=== PATIENT | female | born 1980 | race Caucasian/White ===

== ENCOUNTER 2016-07-02 15:24 | Observation (INO) | payer OTHER ==
[2016-07-02 15:24] VITALS: BMI 27.8
[2016-07-02] MEDS ORDERED: Sodium Chloride 0.9% 1,000 ML IV ONE (16:20)
[2016-07-02] MEDS ORDERED: Sodium Chloride 0.9% 1,000 ML ONE (16:50)
[2016-07-02 16:59] LABS: BASO % 0.4 % (0.0-2.0); EOS % 0.1 % (0.0-4.0); HEMATOCRIT 16.5 % (34.0-47.0); LYMPH # 1.5 K/uL (1.0-4.3); LYMPH % 24.7 % (20.0-40.0); MEAN CELL VOLUME 79.8 fL (81.0-99.0); MEAN CORPUSCULAR HEMOGLOBIN 25.8 pg (27.0-31.0); MEAN CORPUSCULAR HGB CONC 32.4 g/dL (33.0-37.0); MEAN PLATELET VOLUME 7.9 fL (7.2-11.7); MONO # 0.3 K/uL (0.0-0.8); MONO % 4.6 % (0.0-10.0); RED CELL DISTRIBUTION WIDTH 19.1 % (11.5-14.5); WHITE BLOOD COUNT 6.1 K/uL (4.8-10.8)
[2016-07-02 17:07] LABS: INR 1.1
[2016-07-02 17:08] LABS: CHLORIDE 102 mmol/L (98-107); POTASSIUM 3.2 mmol/L (3.6-5.2); SODIUM 137 mmol/L (132-148)
[2016-07-02 17:10] LABS: BILIRUBIN,TOTAL 0.3 mg/dL (0.2-1.3); CARBON DIOXIDE 27 mmol/L (22-30); GFR AFRICAN-AMERICAN > 60
[2016-07-02 17:11] LABS: ALB/GLOB RATIO 1.3 (1.0-2.1); ALKALINE PHOSPHATASE 47 U/L (38-126); ALT/SGPT 28 U/L (9-52); AST/SGOT 30 U/L (14-36); BLOOD UREA NITROGEN 10 mg/dL (7-17); CALCIUM 8.6 mg/dl (8.6-10.4); GLUCOSE,RANDOM 105 mg/dL (65-105)
[2016-07-02 18:05] LABS: RBC URINE 9 /hpf (0-3); URINE BACTERIA RARE (<OCC); URINE BILIRUBIN NEGATIVE (NEGATIVE); URINE COLOR Yellow (YELLOW); URINE GLUCOSE (UA) NORMAL (Normal); URINE KETONE NEGATIVE (NEGATIVE); URINE LEUKOCYTE ESTERASE NEG Leu/uL (Negative); URINE PROTEIN NEGATIVE (NEGATIVE); URINE UROBILINOGEN NORMAL mg/dL (0.2-1.0); WBC URINE 1 /hpf (0-5)
[2016-07-02] MEDS ORDERED: Ferric Sodium Gluconat Complex 62.5 mg/5 ml Vial IVPB STA (18:05)
[2016-07-02] MEDS ORDERED: Potassium Chloride 20 mEq ER Tab PO STA (18:05)
--- NOTE | 2016-07-02 18:08 | C.PDOC ---
History Of Present Illness A 36 y/o female with a Hx of anemia, presents to the ER c/o dizziness and weakness for the last couple of days. Pt notes having heavy menstrual bleeding that began 06/25 and has persisted, noting her menstruation normally last 4 days. Pt reports using 5 pads today. Pt notes h/o anemia with irregular iron supplements and B12 injections monthly. Pt denies fever, chills, lightheadedness, vomiting, nausea, Shortness of breath, or any other complaints. Time Seen by Provider: 07/02/16 16:09 Chief Complaint (Nursing): Dizziness/Lightheaded History Per: Patient History/Exam Limitations: no limitations Onset/Duration Of Symptoms: Days Current Symptoms Are (Timing): Still Present Past Medical History Reviewed: Historical Data, Nursing Documentation, Vital Signs Vital Signs: Last Vital Signs Temp 98.7 F 07/04/16 07:24 Pulse 78 07/04/16 07:24 Resp 20 07/04/16 07:24 BP 100/66 07/04/16 07:24 Pulse Ox 100 07/04/16 07:24 - [facility] Procedures INJECT RH IMMUNE GLOBUL (04/29/13) MANUAL ASSIST DELIV NEC (04/29/13) Family History: States: Unknown Family Hx - Social History Hx Alcohol Use: No Hx Substance Use: No - Immunization History Hx Influenza Vaccination: Yes Review Of Systems Except As Marked, All Systems Reviewed And Found Negative. Constitutional: Positive for: Weakness. Negative for: Fever, Chills Cardiovascular: Negative for: Light Headedness Respiratory: Negative for: Shortness of Breath Gastrointestinal: Negative for: Nausea, Vomiting Genitourinary: Positive for: Vaginal Bleeding (Heavy bleeding) Neurological: Positive for: Dizziness Physical Exam - Physical Exam Appears: Well, Non-toxic, No Acute Distress Skin: Normal Color, Warm, Dry Head: Atraumatic, Normacephalic Eye(s): bilateral: PERRL, EOMI, Conjunctiva Pale Nose: Normal Oral Mucosa: Moist Neck: Normal, Normal ROM, Supple Chest: Symmetrical Cardiovascular: Rhythm Regular, No Murmur Respiratory: Normal Breath Sounds, No Accessory Muscle Use, Other (Speaking full sentences) Gastrointestinal/Abdominal: Soft, No Tenderness, No Guarding, No Rebound Neurological/Psych: Oriented x3, Normal Speech, Other (No focal deficit) ED Course And Treatment - Laboratory Results Result Diagrams: 07/04/16 11:30 07/04/16 07:31 O2 Sat by Pulse Oximetry: 100 (RA) Pulse Ox Interpretation: Normal Progress Note: Impression: 36 y/o female c/o dizziness for a couple of days. Plans: Blood labs, IV fluids, Ferrlecit, K-Dur. labs evaluated and pt was encourage to get blood transfusion but pt adamantly refused treatment. The risks of refusing were explained to the patient and include, but are not limited to, worsening of known or currently unknown conditions, permanent disability and from undiagnosed or untreated conditions. The patient has the capacity to make this decision and has the capacity to understand the clinical situation and my explanation of the risks of refusing transfusion. The patient voluntarily accepts these risks. The patient was given the opportunity to ask questions and reconsider. Case discussed with Dr. Hill who evlauted pt at bedside and requests meidcal admission and DIRECTOR HEALTH will consult. CAse discussed with Dr Reyes, agreed upon plan and admission. Disposition - Disposition Disposition: HOSPITALIZED Disposition Time: 19:00 Condition: STABLE - Clinical Impression Clinical Impression: Symptomatic anemia - Scribe Statement The provider has reviewed the documentation as recorded by the Scribe Sonya pérez All medical record entries made by the Scribe were at my direction and personally dictated by me. I have reviewed the chart and agree that the record accurately reflects my personal performance of the history, physical exam, medical decision making, and the department course for this patient. I have also personally directed, reviewed, and agree with the discharge instructions and disposition.
[2016-07-02 18:09] LABS: URINE BLOOD 1+ (NEGATIVE)
[2016-07-02] MEDS ORDERED: Potassium Chloride 20 mEq ER Tab PO ONE (18:48)
[2016-07-02] MEDS ORDERED: Ferric Sodium Gluconat Complex 125 MG in Sodium Chloride 0.9% 100 ML IVPB ONE (19:00)
--- NOTE | 2016-07-02 19:54 | CP.PCM.CON ---
History of Present Illness - History of Present Illness History of Present Illness: 36 yr lmp 06/27/16 came with vaginal bleeding started , heavy with clots, its slowing down now, c/o diziness and weak. ptt states perios are regular and not heavy before. this period was heavy only. obhx 2 x pmh anemia med vit b12 all nkda psh denies soch denies abd soft,non tender ext no edema,no calf ten sse min bleeding, cervix closed, uterus anteverted, no pal mass Review of Systems - Review of Systems Systems not reviewed;Unavailable: Other (severe anemia) - Reproductive: Female Reproductive:Female: Abnormal Vaginal Bleeding Past Patient History - Infectious Disease Hx of Infectious Diseases: None - Past Social History Smoking Status: Never Smoked - PSYCHIATRIC Hx Substance Use: No Meds Allergies/Adverse Reactions: Allergies Allergy/AdvReac Type Severity Reaction Status Date / Time No Known Allergies Allergy Verified 07/02/16 15:45 - Medications Medications: Current Medications Ferric Sodium Gluconate Complex 125 mg/ Sodium Chloride 110 mls @ 110 mls/hr IVPB ONCE ONE Stop: 07/02/16 19:59 Last Admin: 07/02/16 19:20 Dose: 110 mls/hr Physical Exam - Exam Exam: NORMAL INSPECTION Speculum exam: NORMAL SPECULUM EXAM, Vaginal Bleeding (min) Bimanual exam: NORMAL BIMANUAL EXAM Results - Vital Signs Recent Vital Signs: Last Vital Signs Temp 99.6 F 07/02/16 18:53 Pulse 108 H 07/02/16 18:53 Resp 17 07/02/16 18:53 BP 113/67 07/02/16 18:53 Pulse Ox 100 07/02/16 18:53 - Labs Result Diagrams: 07/02/16 16:47 07/02/16 16:47 Assessment & Plan - Assessment and Plan (Free Text) Assessment: 36 ye with menorrhagia/symtomatic anemia Refused Blood transfusion Plan: plan Admit to medicine for iv fe pelvic/transvaginal sono cont medical management will f/u results - Date & Time Date: 07/02/16 Time: 19:00
--- NOTE | 2016-07-02 20:40 | CP.PCM.HP ---
History of Present Illness - History of Present Illness History of Present Illness: 36-year-old female patient with past medical history of anemia, presented to the ER with complaint of dizziness and weakness for the last couple of days. Patient notes having heavy menstrual bleeding that began 06/25 and has persisted, noting her menstruation normally last 4 days. Patient reports using 5 pads today. Patient notes history of anemia with irregular iron supplements and B12 injections monthly. Denies fever chills, lightheadedness, vomiting, nausea, shortness of breath or any other complaints. Present on Admission - Present on Admission Any Indicators Present on Admission: No Past Patient History - Infectious Disease Hx of Infectious Diseases: None - Past Social History Smoking Status: Never Smoked - PSYCHIATRIC Hx Substance Use: No Meds Home Medications: Home Medication List Medication Instructions Recorded Confirmed Type Docusate [Colace] 100 mg PO BID PRN #60 cap 07/04/16 Rx Ferrous Sulfate 325 mg PO BID #60 tablet 07/04/16 Rx Allergies/Adverse Reactions: Allergies Allergy/AdvReac Type Severity Reaction Status Date / Time No Known Allergies Allergy Verified 07/02/16 15:45 Physical Exam - Constitutional Appears: Well - Head Exam Head Exam: ATRAUMATIC, NORMAL INSPECTION, NORMOCEPHALIC - Eye Exam Eye Exam: EOMI, Normal appearance, PERRL Pupil Exam: NORMAL ACCOMODATION, PERRL - ENT Exam ENT Exam: Mucous Membranes Moist, Normal Exam - Neck Exam Neck exam: Positive for: Normal Inspection - Respiratory Exam Respiratory Exam: Decreased Breath Sounds - Cardiovascular Exam Cardiovascular Exam: REGULAR RHYTHM, +S1, +S2 - GI/Abdominal Exam GI & Abdominal Exam: Diminished Bowel Sounds, Soft - Rectal Exam Rectal Exam: Deferred Results - Vital Signs Recent Vital Signs: Last Vital Signs Temp 99.6 F 07/02/16 18:53 Pulse 108 H 07/02/16 18:53 Resp 17 07/02/16 18:53 BP 113/67 07/02/16 18:53 Pulse Ox 100 07/02/16 18:53 - Labs Result Diagrams: 07/04/16 11:30 07/04/16 07:31 Assessment & Plan (1) Anemia Status: Acute (2) Symptomatic anemia Status: Acute - Assessment and Plan (Free Text) Plan: dr leodan hummel 2 units of prbcs correct k love same protonix scd
[2016-07-02 22:01] LABS: BASO % 0.3 % (0.0-2.0); EOS % 0.1 % (0.0-4.0); HEMATOCRIT 15.2 % (34.0-47.0); LYMPH # 1.5 K/uL (1.0-4.3); LYMPH % 28.5 % (20.0-40.0); MEAN CELL VOLUME 81.1 fL (81.0-99.0); MEAN CORPUSCULAR HEMOGLOBIN 25.6 pg (27.0-31.0); MEAN CORPUSCULAR HGB CONC 31.6 g/dL (33.0-37.0); MEAN PLATELET VOLUME 7.8 fL (7.2-11.7); MONO # 0.3 K/uL (0.0-0.8); MONO % 4.9 % (0.0-10.0); RED CELL DISTRIBUTION WIDTH 18.9 % (11.5-14.5); WHITE BLOOD COUNT 5.4 K/uL (4.8-10.8)
[2016-07-02 22:03] LABS: CHLORIDE 104 mmol/L (98-107)
[2016-07-02 22:04] LABS: POTASSIUM 3.1 mmol/L (3.6-5.2); SODIUM 136 mmol/L (132-148)
[2016-07-02 22:06] LABS: GFR AFRICAN-AMERICAN > 60
[2016-07-02 22:07] LABS: ALB/GLOB RATIO 1.3 (1.0-2.1); ALKALINE PHOSPHATASE 48 U/L (38-126); ALT/SGPT 31 U/L (9-52); AST/SGOT 34 U/L (14-36); BILIRUBIN,TOTAL 0.3 mg/dL (0.2-1.3); BLOOD UREA NITROGEN 8 mg/dL (7-17); CARBON DIOXIDE 25 mmol/L (22-30); GLUCOSE,RANDOM 113 mg/dL (65-105); TOTAL PROTEIN 6.5 g/dL (6.3-8.3)
[2016-07-02] MEDS: Potassium Chloride 20 mEq ER Tab PO SCH (23:29)
[2016-07-03] MEDS: Potassium Chloride 20 mEq ER Tab PO SCH (03:47)
--- NOTE | 2016-07-03 09:32 | CP.PCM.CON ---
History of Present Illness - History of Present Illness History of Present Illness: 36 year old female with a history of chronic anemia admitted with symptomatic anemia. The patient reports to increasing dizziness for several days which prompted her to come to the ER. In the ER her hgb was found to be 4.8. She does have intermittent heavy periods for which she is taking oral iron and monthly B12 shots. She is currently deferring PRBC transfusion support and received a dose of IV iron in the ER. Past medical history: Anemia Past surgical history: None Family history: Denies hematologic and oncologic problems Social history: Denies tobacco, alcohol, and illicit drug use. Allergies: NKA Review of systems: All remaining review fo systems including HEENT, cardiovascular, respiratory, gastrointestinal, genitourinary, mmusculoskeletal, dermatologic, neurologic, and psychiatric are negative unless mentioned in the HPI. Past Patient History - Infectious Disease Hx of Infectious Diseases: None - Past Medical History & Family History Past Medical History?: No - Past Social History Smoking Status: Never Smoked - HEMATOLOGICAL/ONCOLOGICAL Hx Anemia: Yes - MUSCULOSKELETAL/RHEUMATOLOGICAL Hx Falls: No - PSYCHIATRIC Hx Substance Use: No - ANESTHESIA Hx Anesthesia: Yes Hx Anesthesia Reactions: No Hx Malignant Hyperthermia: No Meds Allergies/Adverse Reactions: Allergies Allergy/AdvReac Type Severity Reaction Status Date / Time No Known Allergies Allergy Verified 07/02/16 15:45 - Medications Medications: Current Medications Ferric Sodium Gluconate Complex (Ferrlecit) 125 mg IVPB DAILY [facility] Stop: 07/08/16 10:01 Pantoprazole Sodium (Protonix Ec Tab) 40 mg PO DAILY [facility] Pneumococcal Polyvalent Vaccine (Pneumovax 23 Vaccine) 0.5 ml IM .ONCE ONE Stop: 07/05/16 10:01 Physical Exam - Head Exam Head Exam: ATRAUMATIC - Eye Exam Eye Exam: Normal appearance - ENT Exam ENT Exam: Mucous Membranes Dry - Respiratory Exam Respiratory Exam: NORMAL BREATHING PATTERN - Cardiovascular Exam Cardiovascular Exam: +S1, +S2 - GI/Abdominal Exam GI & Abdominal Exam: Normal Bowel Sounds - Extremities Exam Extremities exam: Positive for: normal inspection - Neurological Exam Neurological exam: Oriented x3 - Psychiatric Exam Psychiatric exam: Normal Affect, Normal Mood - Skin Skin Exam: Warm Results - Vital Signs Recent Vital Signs: Last Vital Signs Temp 98.1 F 07/03/16 08:01 Pulse 91 H 07/03/16 08:01 Resp 20 07/03/16 08:01 BP 96/62 L 07/03/16 08:01 Pulse Ox 99 07/03/16 08:01 - Labs Result Diagrams: 07/02/16 21:52 07/02/16 21:52 Labs: Laboratory Results - last 24 hr 07/02/16 07/02/16 21:52 21:52 WBC 5.4 RBC 1.88 L Hgb 4.8 L* Hct 15.2 L MCV 81.1 MCH 25.6 L MCHC 31.6 L RDW 18.9 H Plt Count 254 MPV 7.8 Neut % (Auto) 66.2 Lymph % (Auto) 28.5 Gibson % (Auto) 4.9 Eos % (Auto) 0.1 Baso % (Auto) 0.3 Neut # 3.6 Lymph # 1.5 Gibson # 0.3 Eos # 0.0 Baso # 0.0 Sodium 136 Potassium 3.1 L Chloride 104 Carbon Dioxide 25 Anion Gap 11 BUN 8 Creatinine 0.7 Est GFR ( Amer) > 60 Est GFR (Non-Af Amer) > 60 Random Glucose 113 H Calcium 8.0 L Total Bilirubin 0.3 AST 34 ALT 31 Alkaline Phosphatase 48 Total Protein 6.5 Albumin 3.6 Globulin 2.9 Albumin/Globulin Ratio 1.3 Assessment & Plan (1) Anemia Assessment and Plan: likely iron deficiency from menorrhagia will check ferritin, retic count, b12, folate will add ferrlecit daily minimize blood draws if possible pt does not want blood transfusions but would reconsider for life threatening emergency [facility] f/u Thank you for this interesting consult. Status: Acute
--- NOTE | 2016-07-03 09:43 | CP.PCM.PN ---
<Rodrigue Cantor - Last Filed: 07/03/16 09:38> Subjective - Date & Time of Evaluation Date of Evaluation: 07/03/16 Time of Evaluation: 09:38 - Subjective Subjective: BROKERAGE MANAGER Progress Note Dr. Sánchez Patient seen and examined at the bedside. No acute distress. No acute events overnight. Nursing staff reports no issues. The patient's hemoglobin on last measure was found to be 4.8. The patient reports continued dizziness, fatigue, and lightheadedness. The option of blood transfusion was again discussed in great detail. The patient is fully aware of the risks and benefits of receiving blood products. Patient fully understands her current condition. The patient fully understands and accepts the all risks and benefits of her decision to refuse pRBC transfusion. The patient verbalizes her refusal and is able to repeat and verify understanding of her decision. The patient has no other acute complaints at this time. She reports an improvement in her menstruation and bleeding since yesterday. The patient notes that she has not had to change her pad yet today. The patient is resting comfortably in bed during the examination. The patient denies fever, chills, headache, chest pain , SOB, abdominal pain, changes in bowel/bladder. Objective - Vital Signs/Intake and Output Vital Signs (last 24 hours): Temp Pulse Resp BP Pulse Ox 98.1 F 91 H 20 96/62 L 99 07/03/16 08:01 07/03/16 08:01 07/03/16 08:01 07/03/16 08:01 07/03/16 08:01 Intake and Output: 07/03/16 07/03/16 06:59 18:59 Intake Total 240 Output Total 0 Balance 240 - Medications Medications: Current Medications Ferric Sodium Gluconate Complex (Ferrlecit) 125 mg IVPB DAILY [facility] Stop: 07/08/16 10:01 Pantoprazole Sodium (Protonix Ec Tab) 40 mg PO DAILY [facility] Pneumococcal Polyvalent Vaccine (Pneumovax 23 Vaccine) 0.5 ml IM .ONCE ONE Stop: 07/05/16 10:01 - Labs Labs: 07/02/16 21:52 07/02/16 21:52 PT 11.8 SECONDS (9.7-12.2) 07/02/16 16:47 INR 1.1 07/02/16 16:47 APTT 24 SECONDS (21-34) 07/02/16 16:47 - Constitutional Appears: Non-toxic, Chronically Ill - Head Exam Head Exam: ATRAUMATIC, NORMAL INSPECTION, NORMOCEPHALIC - Eye Exam Eye Exam: EOMI. absent: Normal appearance (conjunctival pallor ) Pupil Exam: NORMAL ACCOMODATION - ENT Exam ENT Exam: Mucous Membranes Dry, Normal Exam - Neck Exam Neck Exam: Full ROM, Normal Inspection. absent: Lymphadenopathy, Tenderness - Respiratory Exam Respiratory Exam: Clear to Ausculation Bilateral, NORMAL BREATHING PATTERN. absent: Rales, Rhonchi, Wheezes, Stridor - Cardiovascular Exam Cardiovascular Exam: Tachycardia, REGULAR RHYTHM, +S1, +S2. absent: Diastolic murmur, Murmur - GI/Abdominal Exam GI & Abdominal Exam: Soft, Normal Bowel Sounds. absent: Distended, Firm, Guarding, Rigid, Tenderness - Extremities Exam Extremities Exam: Full ROM, Normal Capillary Refill, Normal Inspection. absent : Calf Tenderness, Joint Swelling, Pedal Edema - Neurological Exam Neurological Exam: Alert, Awake, CN II-XII Intact, Oriented x3 - Psychiatric Exam Psychiatric exam: Flat Affect - Skin Skin Exam: Dry, Intact, Normal Color, Warm Assessment and Plan - Assessment and Plan (Free Text) Plan: 1.) Acute Blood Loss Anemia - last H&H 4.8 - patient recommended pRBC transfusion but refused multiple time - the patient will be given IV iron supplementation (ferrlecit 125mg IV daily ) - ferritin, retic count, b12, folate ordered by Heme Onc (Dr. Paulson) - 07/02/16 Transvaginal US- official report pending - will add colace 100mg PO BID PRN for constipation - case discussed with Dr. Gonzalo Cantor PGY1 <Bola Sánchez - Last Filed: 07/03/16 14:24> Objective - Vital Signs/Intake and Output Vital Signs (last 24 hours): Temp Pulse Resp BP Pulse Ox 98.1 F 91 H 20 96/62 L 99 07/03/16 08:01 07/03/16 08:01 07/03/16 08:01 07/03/16 08:01 07/03/16 08:01 Intake and Output: 07/03/16 07/03/16 06:59 18:59 Intake Total 240 Output Total 0 Balance 240 - Medications Medications: Current Medications Docusate Sodium (Colace) 100 mg PO BID PRN PRN Reason: Constipation Last Admin: 07/03/16 10:15 Dose: 100 mg Ferric Sodium Gluconate Complex (Ferrlecit) 125 mg IVPB DAILY [facility] Stop: 07/08/16 10:01 Last Admin: 07/03/16 10:15 Dose: 125 mg Pantoprazole Sodium (Protonix Ec Tab) 40 mg PO DAILY [facility] Last Admin: 07/03/16 10:15 Dose: 40 mg Pneumococcal Polyvalent Vaccine (Pneumovax 23 Vaccine) 0.5 ml IM .ONCE ONE Stop: 07/05/16 10:01 - Labs Labs: 07/03/16 11:41 07/03/16 11:41 PT 11.8 SECONDS (9.7-12.2) 07/02/16 16:47 INR 1.1 07/02/16 16:47 APTT 24 SECONDS (21-34) 07/02/16 16:47 Attending/Attestation - Attestation I have personally seen and examined this patient.: Yes I have fully participated in the care of the patient.: Yes I have reviewed all pertinent clinical information, including history, physical exam and plan: Yes Notes (Text): 07/03/16 14:20 Patient with hx of menorrhagia and severe anemia states that she is bleeding minimally now ultrasound report reviewed with patient.Thickened endometrial lining and fibroid uterus.Discussed with patient about the findings and need for outpatient follow up with possibly hysteroscopy, d&c etc. Discussed effects of severe anemia.Reviewed blood transfusion with patient.Discussed that iv iron would slowly improve the hemoglobin and she is severely anemic.Risks of blood transfusion discussed.patient desires to proceed with blood transfusion.Once hemoglobin stabilized patient clear for discharge from [facility] Will sign off Thank you for the consult
[2016-07-03] MEDS: Ferric Sodium Gluconat Complex 62.5 mg/5 ml Vial IVPB SCH (10:15)
[2016-07-03] MEDS: Pantoprazole 40 mg EC Tab PO SCH (10:15)
--- NOTE | 2016-07-03 10:15 | US ---
Pelvic ultrasound History: Menorrhagia. Comparison: None available. Technique: Real-time sonography was performed through the pelvis utilizing transabdominal and transvaginal techniques. Findings: Uterus: 9.6 x 5.7 x 6.6 centimeters. Heterogeneous echotexture. Anteverted. Anterior fibroid lesion measuring 1.3 x 0.8 x 1.2 centimeters. Endometrium measures up to 1.2 centimeters, mildly prominent. No free fluid in the pelvic cul-de-sac. Right ovary: 3.5 x 2.5 x 2.4 centimeters. Normal flow. Left ovary: 2.4 x 1.7 x 2.3 centimeters. Normal flow. Impression: Heterogeneous uterus with an anterior fibroid lesion measuring 1.3 x 0.8 x 1.2 centimeters. Heterogeneous endometrium measuring up to 1.2 centimeters, mildly prominent.
[2016-07-03 11:58] LABS: BASO % 0.4 % (0.0-2.0); LYMPH # 1.3 K/uL (1.0-4.3); LYMPH % 29.8 % (20.0-40.0); MEAN CELL VOLUME 80.7 fL (81.0-99.0); MEAN CORPUSCULAR HEMOGLOBIN 25.3 pg (27.0-31.0); MEAN CORPUSCULAR HGB CONC 31.3 g/dL (33.0-37.0); MEAN PLATELET VOLUME 8.7 fL (7.2-11.7); MONO # 0.2 K/uL (0.0-0.8); MONO % 5.2 % (0.0-10.0); RED CELL DISTRIBUTION WIDTH 18.6 % (11.5-14.5); WHITE BLOOD COUNT 4.2 K/uL (4.8-10.8)
[2016-07-03 12:07] LABS: CHLORIDE 105 mmol/L (98-107); SODIUM 139 mmol/L (132-148)
[2016-07-03 12:10] LABS: BLOOD UREA NITROGEN 6 mg/dL (7-17); CARBON DIOXIDE 25 mmol/L (22-30); GFR AFRICAN-AMERICAN > 60
[2016-07-03 12:11] LABS: CALCIUM 8.4 mg/dl (8.6-10.4); GLUCOSE,RANDOM 101 mg/dL (65-105)
[2016-07-03 13:19] LABS: FOLATE 11.5 ng/mL
--- NOTE | 2016-07-03 13:48 | CP.PCM.PN ---
Subjective - Date & Time of Evaluation Date of Evaluation: 07/03/16 Time of Evaluation: 13:25 - Subjective Subjective: explained pt for 15 to 20 min about pros and cons of taking prbcs vs not taking prbcs pt understand risk that if she wont take prbcs she may and now considering it as pt was refusing it refuses to erdoc and also refuses to dr. noyola manager completions follow up heme onc follow up Objective - Vital Signs/Intake and Output Vital Signs (last 24 hours): Temp Pulse Resp BP Pulse Ox 98.1 F 91 H 20 96/62 L 99 07/03/16 08:01 07/03/16 08:01 07/03/16 08:01 07/03/16 08:01 07/03/16 08:01 Intake and Output: 07/03/16 07/03/16 06:59 18:59 Intake Total 240 Output Total 0 Balance 240 - Medications Medications: Current Medications Docusate Sodium (Colace) 100 mg PO BID PRN PRN Reason: Constipation Last Admin: 07/03/16 10:15 Dose: 100 mg Ferric Sodium Gluconate Complex (Ferrlecit) 125 mg IVPB DAILY [facility] Stop: 07/08/16 10:01 Last Admin: 07/03/16 10:15 Dose: 125 mg Pantoprazole Sodium (Protonix Ec Tab) 40 mg PO DAILY [facility] Last Admin: 07/03/16 10:15 Dose: 40 mg Pneumococcal Polyvalent Vaccine (Pneumovax 23 Vaccine) 0.5 ml IM .ONCE ONE Stop: 07/05/16 10:01 - Labs Labs: 07/03/16 11:41 07/03/16 11:41 PT 11.8 SECONDS (9.7-12.2) 07/02/16 16:47 INR 1.1 07/02/16 16:47 APTT 24 SECONDS (21-34) 07/02/16 16:47 - Constitutional Appears: Well - Head Exam Head Exam: ATRAUMATIC, NORMAL INSPECTION, NORMOCEPHALIC - Eye Exam Eye Exam: EOMI, Normal appearance, PERRL Pupil Exam: NORMAL ACCOMODATION, PERRL - ENT Exam ENT Exam: Mucous Membranes Moist, Normal Exam - Neck Exam Neck Exam: Full ROM, Normal Inspection. absent: Lymphadenopathy - Respiratory Exam Respiratory Exam: Decreased Breath Sounds - Cardiovascular Exam Cardiovascular Exam: REGULAR RHYTHM, +S1, +S2 - GI/Abdominal Exam GI & Abdominal Exam: Soft, Diminished Bowel Sounds - Rectal Exam Rectal Exam: Deferred Assessment and Plan (1) Anemia Status: Acute (2) Symptomatic anemia Status: Acute - Assessment and Plan (Free Text) Plan: explained pt for 15 to 20 min about pros and cons of taking prbcs vs not taking prbcs pt understand risk that if she wont take prbcs she may and now considering it as pt was refusing it refuses to erdoc and also refuses to dr. noyola manager completions follow up heme onc follow up
[2016-07-03 16:32] VITALS: O2SAT 100
[2016-07-03 23:36] VITALS: RESP 20
[2016-07-04 07:28] VITALS: BP 100/66; PULSE 78; TEMP 98.7
[2016-07-04 07:50] LABS: BASO % 0.5 % (0.0-2.0); EOS % 0.4 % (0.0-4.0); HEMATOCRIT 24.4 % (34.0-47.0); LYMPH # 1.3 K/uL (1.0-4.3); LYMPH % 18.4 % (20.0-40.0); MEAN CORPUSCULAR HGB CONC 32.6 g/dL (33.0-37.0); MEAN PLATELET VOLUME 8.2 fL (7.2-11.7); MONO # 0.4 K/uL (0.0-0.8); MONO % 5.7 % (0.0-10.0); NRBC % 0.1 % (0.0-2.0); RED CELL DISTRIBUTION WIDTH 17.7 % (11.5-14.5)
[2016-07-04 07:53] LABS: MEAN CELL VOLUME 82.9 fL (81.0-99.0); WHITE BLOOD COUNT 7.2 K/uL (4.8-10.8)
[2016-07-04 08:15] LABS: CHLORIDE 105 mmol/L (98-107); POTASSIUM 3.9 mmol/L (3.6-5.2); SODIUM 137 mmol/L (132-148)
[2016-07-04 08:18] LABS: BLOOD UREA NITROGEN 8 mg/dL (7-17); CALCIUM 7.9 mg/dl (8.6-10.4); CARBON DIOXIDE 26 mmol/L (22-30); GFR AFRICAN-AMERICAN > 60; GLUCOSE,RANDOM 93 mg/dL (65-105)
--- NOTE | 2016-07-04 09:53 | CP.PCM.PN ---
Subjective - Date & Time of Evaluation Date of Evaluation: 07/04/16 Time of Evaluation: 10:40 - Subjective Subjective: clinically same Objective - Vital Signs/Intake and Output Vital Signs (last 24 hours): Temp Pulse Resp BP Pulse Ox 98.7 F 78 20 100/66 100 07/04/16 07:24 07/04/16 07:24 07/04/16 07:24 07/04/16 07:24 07/04/16 07:24 Intake and Output: 07/04/16 07/04/16 06:59 18:59 Intake Total 1328 Balance 1328 - Medications Medications: Current Medications Docusate Sodium (Colace) 100 mg PO BID PRN PRN Reason: Constipation Last Admin: 07/03/16 10:15 Dose: 100 mg Ferric Sodium Gluconate Complex (Ferrlecit) 125 mg IVPB DAILY [facility] Stop: 07/08/16 10:01 Last Admin: 07/03/16 10:15 Dose: 125 mg Pantoprazole Sodium (Protonix Ec Tab) 40 mg PO DAILY [facility] Last Admin: 07/03/16 10:15 Dose: 40 mg Pneumococcal Polyvalent Vaccine (Pneumovax 23 Vaccine) 0.5 ml IM .ONCE ONE Stop: 07/05/16 10:01 - Labs Labs: 07/04/16 07:31 07/04/16 07:31 PT 11.8 SECONDS (9.7-12.2) 07/02/16 16:47 INR 1.1 07/02/16 16:47 APTT 24 SECONDS (21-34) 07/02/16 16:47 - Constitutional Appears: Well - Head Exam Head Exam: ATRAUMATIC, NORMAL INSPECTION, NORMOCEPHALIC - Eye Exam Eye Exam: EOMI, Normal appearance, PERRL Pupil Exam: NORMAL ACCOMODATION, PERRL - ENT Exam ENT Exam: Mucous Membranes Moist, Normal Exam - Neck Exam Neck Exam: Full ROM, Normal Inspection. absent: Lymphadenopathy - Respiratory Exam Respiratory Exam: Decreased Breath Sounds - Cardiovascular Exam Cardiovascular Exam: REGULAR RHYTHM, +S1, +S2 - GI/Abdominal Exam GI & Abdominal Exam: Soft, Diminished Bowel Sounds - Rectal Exam Rectal Exam: Deferred Assessment and Plan (1) Anemia Status: Acute (2) Symptomatic anemia Status: Acute - Assessment and Plan (Free Text) Plan: S/P 3U PRBC hemoglobin monitor Patient can be discharged today [facility] follow-up at office
[2016-07-04] MEDS: Pantoprazole 40 mg EC Tab PO SCH (11:00)
[2016-07-04] MEDS: Ferric Sodium Gluconat Complex 62.5 mg/5 ml Vial IVPB SCH (11:00)
[2016-07-04 11:41] LABS: HEMATOCRIT 25.8 % (34.0-47.0); MEAN CELL VOLUME 83.1 fL (81.0-99.0); MEAN CORPUSCULAR HEMOGLOBIN 27.4 pg (27.0-31.0); MEAN PLATELET VOLUME 8.6 fL (7.2-11.7); RED CELL DISTRIBUTION WIDTH 17.9 % (11.5-14.5); WHITE BLOOD COUNT 7.5 K/uL (4.8-10.8)
--- NOTE | 2016-07-04 12:36 | CP.PCM.PN ---
Subjective - Date & Time of Evaluation Date of Evaluation: 07/03/16 Time of Evaluation: 20:00 - Subjective Subjective: Receiving PRBC transfusion Objective - Vital Signs/Intake and Output Vital Signs (last 24 hours): Temp Pulse Resp BP Pulse Ox 98.7 F 78 20 100/66 100 07/04/16 07:24 07/04/16 07:24 07/04/16 07:24 07/04/16 07:24 07/04/16 07:24 Intake and Output: 07/04/16 07/04/16 06:59 18:59 Intake Total 1328 Balance 1328 - Medications Medications: Current Medications Docusate Sodium (Colace) 100 mg PO BID PRN PRN Reason: Constipation Last Admin: 07/04/16 11:47 Dose: 100 mg Ferric Sodium Gluconate Complex (Ferrlecit) 125 mg IVPB DAILY [facility] Stop: 07/08/16 10:01 Last Admin: 07/04/16 11:00 Dose: 125 mg Pantoprazole Sodium (Protonix Ec Tab) 40 mg PO DAILY [facility] Last Admin: 07/04/16 11:00 Dose: 40 mg Pneumococcal Polyvalent Vaccine (Pneumovax 23 Vaccine) 0.5 ml IM .ONCE ONE Stop: 07/05/16 10:01 - Labs Labs: 07/04/16 11:30 07/04/16 07:31 PT 11.8 SECONDS (9.7-12.2) 07/02/16 16:47 INR 1.1 07/02/16 16:47 APTT 24 SECONDS (21-34) 07/02/16 16:47 - Head Exam Head Exam: ATRAUMATIC - Eye Exam Eye Exam: Normal appearance - ENT Exam ENT Exam: Mucous Membranes Dry - Respiratory Exam Respiratory Exam: NORMAL BREATHING PATTERN - Cardiovascular Exam Cardiovascular Exam: +S1, +S2 - GI/Abdominal Exam GI & Abdominal Exam: Normal Bowel Sounds - Extremities Exam Extremities Exam: Normal Inspection Assessment and Plan (1) Anemia Assessment & Plan: iron deficiency; 3U PRBC today on Ferrlecit daily menorrhagia; [employer]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
--- NOTE | 2016-07-04 12:38 | CP.PCM.PN ---
Subjective - Date & Time of Evaluation Date of Evaluation: 07/04/16 Time of Evaluation: 11:00 - Subjective Subjective: Feeling better after PRBC transfusion Objective - Vital Signs/Intake and Output Vital Signs (last 24 hours): Temp Pulse Resp BP Pulse Ox 98.7 F 78 20 100/66 100 07/04/16 07:24 07/04/16 07:24 07/04/16 07:24 07/04/16 07:24 07/04/16 07:24 Intake and Output: 07/04/16 07/04/16 06:59 18:59 Intake Total 1328 Balance 1328 - Medications Medications: Current Medications Docusate Sodium (Colace) 100 mg PO BID PRN PRN Reason: Constipation Last Admin: 07/04/16 11:47 Dose: 100 mg Ferric Sodium Gluconate Complex (Ferrlecit) 125 mg IVPB DAILY [facility] Stop: 07/08/16 10:01 Last Admin: 07/04/16 11:00 Dose: 125 mg Pantoprazole Sodium (Protonix Ec Tab) 40 mg PO DAILY [facility] Last Admin: 07/04/16 11:00 Dose: 40 mg Pneumococcal Polyvalent Vaccine (Pneumovax 23 Vaccine) 0.5 ml IM .ONCE ONE Stop: 07/05/16 10:01 - Labs Labs: 07/04/16 11:30 07/04/16 07:31 PT 11.8 SECONDS (9.7-12.2) 07/02/16 16:47 INR 1.1 07/02/16 16:47 APTT 24 SECONDS (21-34) 07/02/16 16:47 - Head Exam Head Exam: ATRAUMATIC - Eye Exam Eye Exam: Normal appearance - ENT Exam ENT Exam: Mucous Membranes Dry - Respiratory Exam Respiratory Exam: NORMAL BREATHING PATTERN - Cardiovascular Exam Cardiovascular Exam: +S1, +S2 - GI/Abdominal Exam GI & Abdominal Exam: Normal Bowel Sounds - Extremities Exam Extremities Exam: Normal Inspection Assessment and Plan (1) Anemia Assessment & Plan: menorrhagia and iron deficiency s/p 3U PRBC, 1 addition unit today Ferrlecit daily [employer] [employer] f/u Status: Acute
--- NOTE | 2016-07-04 17:42 | CP.PCM.PN ---
Subjective - Date & Time of Evaluation Date of Evaluation: 07/04/16 Time of Evaluation: 11:00 - Subjective Subjective: Alert and orientedx3, nad. No sob or chest pains. Objective - Vital Signs/Intake and Output Vital Signs (last 24 hours): Temp Pulse Resp BP Pulse Ox 98.7 F 78 20 100/66 100 07/04/16 07:24 07/04/16 07:24 07/04/16 07:24 07/04/16 07:24 07/04/16 07:24 Intake and Output: 07/04/16 07/04/16 06:59 18:59 Intake Total 1328 550 Balance 1328 550 - Labs Labs: 07/04/16 11:30 07/04/16 07:31 PT 11.8 SECONDS (9.7-12.2) 07/02/16 16:47 INR 1.1 07/02/16 16:47 APTT 24 SECONDS (21-34) 07/02/16 16:47 Assessment and Plan - Assessment and Plan (Free Text) Assessment: Patient is seen and examined. Received total of 3 units PRBC, hgb today is 8.5. Feeling much better, no sob or chest pains. cleared by Dr Paulson, and [facility] [facility] for discharge. D/W DR Rehan Reyes, discharge plan to home today. Advised to f/u with PMD , DR Paulson and [employer] TE[facility] in 1 week.
[2016-07-05] MEDS ORDERED: Pneumococcal 23-Valent Vaccine IM ONE (10:00)
== END 2016-07-04 16:30 | disposition home or self-care (01) ==
LOC: C.ER 15:24 → C.9E 18:54 → C.3T 20:28
PROVIDERS: ADMIT Internal Medicine Nephrology; ATTEND Internal Medicine Nephrology
DX: D62 Acute posthemorrhagic anemia (principal); D50.9 Iron deficiency anemia, unspecified; N92.0 Excessive and frequent menstruation with regular cycle
CPT/HCPCS: 36415; 36430; 76830; 76856; 80048; 80053; 81001; 82607; 82728; 82746; 84702; 84703; 85025; 85027; 85044; 85610; 85730; 86850; 86870; 86900; 86920; 86922; 96365; 99285; G0378; J2916; J7040; P9051